=== PATIENT | male | born 1985 | race Two or more races ===

== ENCOUNTER 2018-10-25 15:22 | Emergency (ER) | payer SELFPAY ==
--- NOTE | 2018-10-25 15:41 | ER Document Report ---
ED Medical Screen (RME) - General Chief Complaint: Abdominal Pain Stated Complaint: ABDOMINAL PAIN Time Seen by Provider: 10/25/18 15:37 Primary Care Provider: TARI LUNSFORD [Primary Care Provider] - Follow up as needed Mode of Arrival: Ambulatory Information source: Patient Notes: 33-year-old male presents to ED for complaint of bilateral lower abdominal pain for about a week. He denies any nausea vomiting or diarrhea. Abdomen is soft but is tender in the pelvic area bowel sounds are active. He states it feels sore all the time. Patient is alert oriented respirations regular and unlabored speaking in full sentences walks with a even steady gait. He denies any past medical or surgical history. He states he does smoke a vapor cigarette but does not drink or do any drugs. Patient states whenever he is in the emergency room around the doctor's office his pulse and blood pressure do get higher. While I was talking to him I had him turn away from the vital sign machine and his pulse went down to 114 before he turned back around again and then his pulse shot back up to 125. I have greeted and performed a rapid initial assessment of this patient. A comprehensive ED assessment and evaluation of the patient, analysis of test results and completion of medical decision making process will be conducted by an additional ED providers. TRAVEL OUTSIDE OF THE [place] IN LAST 30 DAYS: No - Related Data Allergies/Adverse Reactions: No Known Allergies Allergy (Unverified 10/25/18 15:23) Past Medical History - Social History Chew tobacco use (# tins/day): No Frequency of alcohol use: None Drug Abuse: None Renal/ Medical History: Denies: Hx Peritoneal Dialysis Physical Exam - Vital signs Vitals: Temp Pulse Resp BP Pulse Ox 98.3 F 123 H 20 161/104 H 98 10/25/18 15:27 10/25/18 15:27 10/25/18 15:27 10/25/18 15:27 10/25/18 15:27 Course - Vital Signs Vital signs: Temp Pulse Resp BP Pulse Ox 98.3 F 123 H 20 161/104 H 98 10/25/18 15:27 10/25/18 15:27 10/25/18 15:27 10/25/18 15:27 10/25/18 15:27 Doctor's Discharge - Discharge Referrals: TARI LUNSFORD [Primary Care Provider] - Follow up as needed
[2018-10-25] MEDS ORDERED: RINGERS SOLUTION,LACTATED 1,000 ML IV ONE (16:25)
[2018-10-25 17:14] LABS: ABSOLUTE EOSINOPHILS # (AUTO) 0.2 10^3/uL (0.0-0.6); ABSOLUTE LYMPHOCYTES (AUTO) 2.3 10^3/uL (0.5-4.7); ABSOLUTE MONOCYTES (AUTO) 0.5 10^3/uL (0.1-1.4); ABSOLUTE NEUT (AUTO) 4.4 10^3/uL (1.7-8.2); BASOPHILS % (AUTO) 0.3 % (0-2); EOSINOPHILS % (AUTO) 2.1 % (0-6); HEMATOCRIT 42.7 % (37.9-51.0); HEMOGLOBIN 15.2 g/dL (13.5-17.0); LYMPHOCYTES % (AUTO) 31.5 % (13-45); MEAN CORPUSCULAR HEMOGLOBIN 29.9 pg (27.0-33.4); MEAN CORPUSCULAR HGB CONC 35.6 g/dL (32.0-36.0); MEAN CORPUSCULAR VOLUME 84 fl (80-97); MONOCYTES % (AUTO) 6.4 % (3-13); PLATELET COUNT 242 10^3/uL (150-450); RED BLOOD COUNT 5.09 10^6/uL (4.35-5.55); RED CELL DISTRIBUTION WIDTH 12.6 % (11.5-14.0); SEGMENTED NEUTROPHILS % (AUTO) 59.7 % (42-78); TOTAL CELLS COUNTED % (AUTO) 100 %; WHITE BLOOD COUNT 7.4 10^3/uL (4.0-10.5)
[2018-10-25 17:21] LABS: APPEARANCE,URINE CLEAR; BILIRUBIN,URINE NEGATIVE (NEGATIVE); COLOR,URINE YELLOW; GLUCOSE, URINE NEGATIVE (NEGATIVE); KETONES,URINE NEGATIVE (NEGATIVE); LEUKOCYTE ESTERASE,URINE NEGATIVE (NEGATIVE); NITRITE,URINE NEGATIVE (NEGATIVE); PROTEIN,URINE NEGATIVE (NEGATIVE); URINE SPECIFIC GRAVITY 1.012; UROBILINOGEN,URINE NEGATIVE mg/dL (<2.0)
[2018-10-25 17:33] LABS: ALANINE AMINOTRANSFERASE 80 U/L (21-72); ALBUMIN 4.4 g/dL (3.5-5.0); ALKALINE PHOSPHATASE 65 U/L (38-126); ANION GAP 9 (5-19); ASPARTATE AMINO TRANSFERASE 36 U/L (17-59); BILIRUBIN,DIRECT 0.3 mg/dL (0.0-0.4); BILIRUBIN,TOTAL 0.5 mg/dL (0.2-1.3); BLOOD UREA NITROGEN 12 mg/dL (7-20); CALCIUM 9.6 mg/dL (8.4-10.2); CARBON DIOXIDE 28 mmol/L (22-30); CHLORIDE 104 mmol/L (98-107); GLUCOSE 92 mg/dL (75-110); POTASSIUM 4.4 mmol/L (3.6-5.0); SODIUM 141.2 mmol/L (137-145); TOTAL PROTEIN 7.8 g/dL (6.3-8.2)
--- NOTE | 2018-10-25 18:24 | ER Document Report ---
ED General - General Chief Complaint: Abdominal Pain Stated Complaint: ABDOMINAL PAIN Time Seen by Provider: 10/25/18 15:37 Primary Care Provider: TARI LUNSFORD [NO LOCAL MD] - Follow up as needed Mode of Arrival: Ambulatory TRAVEL OUTSIDE OF THE [place] IN LAST 30 DAYS: No - HPI Patient complains to provider of: Abdominal pain Notes: Patient coming in for evaluation of abdominal pain. Patient says lower abdominal pain right lower quadrant left lower quadrant for approximately 1 week. Patient states no nausea no diarrhea no abdominal trauma. Patient states possibly constipation. Patient was noted to be in triage area approximately 130. Patient states possibly slightly anxious and also possibly slight dehydration. Patient otherwise resting company upon my evaluation playing on his phone. Denies any sick contacts Patient was seen in triage notes provided below 33-year-old male presents to ED for complaint of bilateral lower abdominal pain for about a week. He denies any nausea vomiting or diarrhea. Abdomen is soft but is tender in the pelvic area bowel sounds are active. He states it feels sore all the time. Patient is alert oriented respirations regular and unlabored speaking in full sentences walks with a even steady gait. He denies any past medical or surgical history. He states he does smoke a vapor cigarette but does not drink or do any drugs. Patient states whenever he is in the emergency room around the doctor's office his pulse and blood pressure do get higher. While I was talking to him I had him turn away from the vital sign machine and his pulse went down to 114 before he turned back around again and then his pulse shot back up to 125. - Related Data Allergies/Adverse Reactions: No Known Allergies Allergy (Unverified 10/25/18 15:23) Past Medical History - General Information source: Patient - Social History Smoking Status: Current Every Day Smoker Chew tobacco use (# tins/day): No Frequency of alcohol use: None Drug Abuse: None Family History: Reviewed & Not Pertinent Patient has suicidal ideation: No Patient has homicidal ideation: No Renal/ Medical History: Denies: Hx Peritoneal Dialysis Review of Systems - Review of Systems Constitutional: No symptoms reported EENT: No symptoms reported Cardiovascular: No symptoms reported Respiratory: No symptoms reported Gastrointestinal: Abdominal pain Genitourinary: No symptoms reported Male Genitourinary: No symptoms reported Musculoskeletal: No symptoms reported Skin: No symptoms reported Hematologic/Lymphatic: No symptoms reported Neurological/Psychological: No symptoms reported -: Yes All other systems reviewed and negative Physical Exam - Vital signs Vitals: Temp Pulse Resp BP Pulse Ox 98.3 F 123 H 20 161/104 H 98 10/25/18 15:27 10/25/18 15:27 10/25/18 15:27 10/25/18 15:27 10/25/18 15:27 Interpretation: Normal - General General appearance: Appears well, Alert - HEENT Head: Normocephalic, Atraumatic Eyes: Normal Pupils: PERRL - Respiratory Respiratory status: No respiratory distress Chest status: Nontender Breath sounds: Normal Chest palpation: Normal - Cardiovascular Rhythm: Regular Heart sounds: Normal auscultation Murmur: No - Abdominal Inspection: Normal Distension: No distension Bowel sounds: Normal Tenderness: Tender - Minimal tenderness in lower quadrants no guarding or rebound no surgical pathology seen. No: McBurney's point, Bowden's sign, Guarding, Rebound Organomegaly: No organomegaly - Back Back: Normal, Nontender - Extremities General upper extremity: Normal inspection, Nontender, Normal color, Normal ROM, Normal temperature General lower extremity: Normal inspection, Nontender, Normal color, Normal ROM, Normal temperature, Normal weight bearing. No: Yousuf's sign - Neurological Neuro grossly intact: Yes Cognition: Normal Orientation: AAOx4 [place] Coma Scale Eye Opening: Spontaneous Monica Coma Scale Verbal: Oriented Monica Coma Scale Motor: Obeys Commands [place] Coma Scale Total: 15 Speech: Normal Motor strength normal: LUE, RUE, LLE, RLE Sensory: Normal - Psychological Associated symptoms: Normal affect, Normal mood - Skin Skin Temperature: Warm Skin Moisture: Dry Skin Color: Normal Course - Re-evaluation Re-evalutation: 10/25/18 18:22 The patient presents with abdominal pain without signs of peritonitis or other life-threatening or serious etiology. The patient appears stable for discharge and has been instructed to return immediately if the symptoms worsen in any way, or in 8-12hr if not improved for re-evaluation. The patient has been instructed to return if the symptoms worsen or change in any way. - Vital Signs Vital signs: Temp Pulse Resp BP Pulse Ox 98.3 F 123 H 20 161/104 H 98 10/25/18 15:27 10/25/18 15:27 10/25/18 15:27 10/25/18 15:27 10/25/18 15:27 - Laboratory Result Diagrams: 10/25/18 15:53 10/25/18 15:53 Laboratory results interpreted by me: 10/25/18 15:53 ALT 80 H Discharge - Discharge Clinical Impression: Abdominal pain Qualifiers: Abdominal location: lower abdomen, unspecified Qualified Code(s): R10.30 - Lower abdominal pain, unspecified Condition: Good Disposition: HOME, SELF-CARE Instructions: Abdominal Pain ([facility]) Additional Instructions: At this time the laboratory studies not show any critical pathology. Your heart rate has improved to hydration more likely you are dehydrated. I recommend Bentyl for abdominal pain along with Tylenol Motrin. You may take the Zofran as prescribed for any nausea. Also did recommend taking Colace to make sure that you are having healthy bowel movements. Please eat a bland diet avoiding fatty greasy food for the next 48 hours. Return to the ER if you develop a fever. Prescriptions: Dicyclomine HCl [Bentyl 20 mg Tablet] 20 mg PO QID #30 tablet Docusate Sodium [Colace] 100 mg PO DAILY #20 capsule Ondansetron HCl [Zofran 4 mg Tablet] 1 - 2 tab PO Q6 #30 tablet Forms: Return to Work Referrals: LOCALMD,NO [NO LOCAL MD] - Follow up as needed
[2018-10-25 20:28] VITALS: BP 139/84
== END 2018-10-25 20:36 | disposition home or self-care (01) ==
LOC: ER 15:22
DX: R10.31 Right lower quadrant pain (principal); R10.12 Left upper quadrant pain; F17.290 Nicotine dependence, other tobacco product, uncomplicated
CPT/HCPCS: 99284; 96360; 36415; 85025; 80053; 81001; J7120

== ENCOUNTER 2019-07-28 12:56 | Inpatient (IN) | payer OTHER ==
[2019-07-28] MEDS ORDERED: ONDANSETRON HCL INJ/PF 4 MG/2 ML SDV IV ONE (13:35)
[2019-07-28] MEDS ORDERED: MORPHINE SULFATE 10 MG/ML INJ IV ONE ×2 (13:35→18:22)
[2019-07-28] MEDS ORDERED: NORMAL SALINE 1000 ML 1,000 ML IV ONE ×2 (13:35→22:00)
--- NOTE | 2019-07-28 13:37 | ER Document Report ---
ED Medical Screen (RME) - General Chief Complaint: Abdominal Pain Stated Complaint: ABDOMINAL PAIN/FEVER Time Seen by Provider: 07/28/19 13:33 TRAVEL OUTSIDE OF THE [place] IN LAST 30 DAYS: No - HPI Notes: 07/28/19 13:36 Patient is a 34-year-old male with no significant past medical history who presents complaint of low-grade fever and right lower quadrant abdominal pain that is been present for the past 2 days and does not radiate. Patient describes the pain as a sharp pain. He did have nausea and vomiting, but has not vomited since yesterday. He is still urinating normally and having normal bowel movements. I have treated and performed a rapid initial assessment of this patient. A comprehensive ED assessment and evaluation of the patient, analysis of test results and completion of medical decision making process will be conducted by additional ED providers. PHYSICAL EXAMINATION: GENERAL: Well-appearing, well-nourished and in no acute distress. A&Ox4. Answers questions appropriately. Abdomen: Limited exam in triage, but there is significant tenderness of the right lower quadrant. No CVA tenderness. - Related Data Allergies/Adverse Reactions: No Known Allergies Allergy (Unverified 10/25/18 15:23) Past Medical History Renal/ Medical History: Denies: Hx Peritoneal Dialysis Physical Exam - Vital signs Vitals: Temp Pulse Resp BP Pulse Ox 98.7 F 110 H 18 137/82 H 94 07/28/19 13:15 07/28/19 13:15 07/28/19 13:15 07/28/19 13:15 07/28/19 13:15 Course - Vital Signs Vital signs: Temp Pulse Resp BP Pulse Ox 98.7 F 110 H 18 137/82 H 94 07/28/19 13:15 07/28/19 13:15 07/28/19 13:15 07/28/19 13:15 07/28/19 13:15
[2019-07-28 14:11] LABS: ABSOLUTE LYMPHOCYTES (AUTO) 1.1 10^3/uL (0.5-4.7); ABSOLUTE MONOCYTES (AUTO) 1.1 10^3/uL (0.1-1.4); ABSOLUTE NEUT (AUTO) 13.3 10^3/uL (1.7-8.2); BASOPHILS % (AUTO) 0.2 % (0-2); EOSINOPHILS % (AUTO) 0.1 % (0-6); HEMATOCRIT 46.9 % (37.9-51.0); HEMOGLOBIN 16.4 g/dL (13.5-17.0); LYMPHOCYTES % (AUTO) 7.3 % (13-45); MEAN CORPUSCULAR HEMOGLOBIN 29.9 pg (27.0-33.4); MEAN CORPUSCULAR HGB CONC 34.9 g/dL (32.0-36.0); MEAN CORPUSCULAR VOLUME 86 fl (80-97); MONOCYTES % (AUTO) 6.9 % (3-13); PLATELET COUNT 214 10^3/uL (150-450); RED BLOOD COUNT 5.47 10^6/uL (4.35-5.55); RED CELL DISTRIBUTION WIDTH 13.1 % (11.5-14.0); SEGMENTED NEUTROPHILS % (AUTO) 85.5 % (42-78); TOTAL CELLS COUNTED % (AUTO) 100 %; WHITE BLOOD COUNT 15.5 10^3/uL (4.0-10.5)
[2019-07-28 14:21] LABS: APPEARANCE,URINE CLEAR; BILIRUBIN,URINE NEGATIVE (NEGATIVE); COLOR,URINE AMBER; GLUCOSE, URINE NEGATIVE (NEGATIVE); KETONES,URINE 80 mg/dL (NEGATIVE); PROTEIN,URINE 30 mg/dL (NEGATIVE); URINE SPECIFIC GRAVITY 1.024
[2019-07-28 14:48] LABS: ALBUMIN 4.6 g/dL (3.5-5.0); ALKALINE PHOSPHATASE 77 U/L (38-126); ANION GAP 11 (5-19); ASPARTATE AMINO TRANSFERASE 26 U/L (17-59); BILIRUBIN,DIRECT 0.4 mg/dL (0.0-0.4); BILIRUBIN,TOTAL 1.8 mg/dL (0.2-1.3); BLOOD UREA NITROGEN 11 mg/dL (7-20); CALCIUM 9.7 mg/dL (8.4-10.2); CARBON DIOXIDE 28 mmol/L (22-30); CHLORIDE 96 mmol/L (98-107); GLUCOSE 108 mg/dL (75-110); POTASSIUM 4.6 mmol/L (3.6-5.0); TOTAL PROTEIN 7.9 g/dL (6.3-8.2)
--- NOTE | 2019-07-28 15:13 | ER Document Report ---
ED GI/ - General Chief Complaint: Abdominal Pain Stated Complaint: ABDOMINAL PAIN/FEVER Time Seen by Provider: 07/28/19 13:33 Notes: CHIEF COMPLAINT: Right lower quadrant pain for 2 days HPI: 34-year-old male presenting to the emergency department complaining of severe right lower quadrant pain for 2 days denies penile or testicular pain. Denies dysuria. Denies fever. Has had nausea. Patient states 2 days ago he had gone out to eat and woke up in the middle of the night throwing up with right lower quadrant pain. The pain is been persistent and progressively worsening. Denies prior abdominal surgical history. Pain is worse with walking or movement ROS: See HPI - all other systems were reviewed and are otherwise negative Constitutional: no fever Eyes: no drainage, no blurred vision ENT: no runny nose, no sore throat Cardiovascular: no chest pain Resp: no SOB, no cough GI: + vomiting, no diarrhea, + abdominal pain : no dysuria Integumentary: no rash Allergy: no hives Musculoskeletal: no extremity pain or swelling Neurological: no numbness/tingling, no weakness MEDICATIONS: I agree with the patient medications as charted by the RN. ALLERGIES: I agree with the allergies as charted by the RN. PAST MEDICAL HISTORY/PAST SURGICAL HISTORY: Reviewed and agree as charted by RN. SOCIAL HISTORY: Reviewed and agree as charted by RN. FAMILY HISTORY: No significant familial comorbid conditions directly related to patient complaint EXAM: Reviewed vital signs as charted by RN. CONSTITUTIONAL: Alert and oriented and responds appropriately to questions. Uncomfortable -appearing; well-nourished HEAD: Normocephalic; atraumatic EYES: PERRL; Conjunctivae clear, sclerae non-icteric ENT: normal nose; no rhinorrhea; moist mucous membranes; pharynx without lesions noted, no uvula edema or deviation, no tonsillar hypertrophy, phonation normal NECK: Supple without meningismus; non-tender; no cervical lymphadenopathy, no masses CARD: RRR; no murmurs, no clicks, no rubs, no gallops; symmetric distal pulses RESP: Normal chest excursion without splinting or tachypnea; breath sounds clear and equal bilaterally; no wheezes, no rhonchi, no rales, pulse oximetry 98% on room air not hypoxic ABD/GI: Normal bowel sounds; non-distended; soft, moderate tenderness with guarding in the right lower quadrant on palpation; no palpable organomegaly or masses. BACK: The back appears normal and is non-tender to palpation, there is no CVA tenderness EXT: Normal ROM in all joints; non-tender to palpation; no cyanosis, no eff usions, no edema SKIN: Normal color for age and race; warm; dry; good turgor; no acute lesions no danyel NEURO: Moves all extremities equally; Motor and sensory function intact PSYCH: The patient's mood and manner are appropriate. Grooming and personal hygiene are appropriate. MDM: 34-year-old male with 2 days of a constant right lower quadrant pain denies penile or testicular pain. Initially had some vomiting now only with nausea. Patient has a mild leukocytosis. Suspect appendicitis. Will obtain CT imaging TRAVEL OUTSIDE OF THE [place] IN LAST 30 DAYS: No - Related Data Allergies/Adverse Reactions: No Known Allergies Allergy (Unverified 10/25/18 15:23) Past Medical History - Social History Smoking Status: Current Every Day Smoker Family History: Reviewed & Not Pertinent Patient has suicidal ideation: No Patient has homicidal ideation: No Renal/ Medical History: Denies: Hx Peritoneal Dialysis Physical Exam - Vital signs Vitals: Temp Pulse Resp BP Pulse Ox 98.7 F 110 H 18 137/82 H 94 07/28/19 13:15 07/28/19 13:15 07/28/19 13:15 07/28/19 13:15 07/28/19 13:15 Course - Re-evaluation Re-evalutation: 07/28/19 19:03 Called by the radiologist, patient with a positive appendicitis without perforation or abscess on CT. Discussed with the patient. I discussed with Dr. Anthony the surgeon, he will admit and see the patient - Vital Signs Vital signs: Temp Pulse Resp BP Pulse Ox 98.0 F 102 H 18 152/81 H 97 07/28/19 17:07 07/28/19 17:07 07/28/19 17:07 07/28/19 17:07 07/28/19 17:07 - Laboratory Result Diagrams: 07/28/19 13:52 07/28/19 13:52 Laboratory results interpreted by me: 07/28/19 07/28/19 07/28/19 13:52 13:52 13:52 WBC 15.5 H Lymph % (Auto) 7.3 L Absolute Neuts (auto) 13.3 H Seg Neutrophils % 85.5 H Sodium 134.8 L Chloride 96 L Total Bilirubin 1.8 H Urine Protein 30 H Urine Ketones 80 H Urine Blood SMALL H Urine Urobilinogen 4.0 H Discharge - Discharge Clinical Impression: Acute appendicitis Qualifiers: Acute appendicitis type: with localized peritonitis Appendicitis gangrene presence: without gangrene Appendicitis perforation presence: without perforation Appendicitis abscess presence: without abscess Qualified Code(s): K35.30 - Acute appendicitis with localized peritonitis, without perforation or gangrene Condition: Stable Disposition: ADMITTED INPATIENT Admitting Provider: Surgicalist - Dr. Anthony Unit Admitted: Surgical Floor
[2019-07-28] MEDS ORDERED: PIPERACILLIN/TAZOBACTAM 3.375 GM VIAL IV ONE (18:20)
--- NOTE | 2019-07-28 19:00 | RADIOLOGY REPORT (SQ) ---
EXAM DESCRIPTION: CT ABD/PELVIS WITH IV ORAL COMPLETED DATE/TIME: 07/28/2019 5:14 pm REASON FOR STUDY: appendicitis. Right lower quadrant pain. COMPARISON: None. TECHNIQUE: CT scan of the abdomen and pelvis performed using helical scanning technique with dynamic intravenous contrast injection. No oral contrast. Images reviewed with lung, soft tissue, and bone windows. Reconstructed coronal and sagittal MPR images reviewed. Delayed images for evaluation of the urinary system also acquired. All images stored on PACS. All CT scanners at this facility use dose modulation, iterative reconstruction, and/or weight based d osing when appropriate to reduce radiation dose to as low as reasonably achievable (ALARA). [facility]: Dose Right [facility]: CareDose [facility]: Dose Right [facility]: Teradose 4D [facility]: [employer] CONTRAST TYPE AND DOSE: contrast/concentration: Isovue 350.00 mg/ml; Total Contrast Delivered: 100.0 ml; Total Saline Delivered: 72.0 ml RENAL FUNCTION: GFR > 60. RADIATION DOSE: CT Rad equipment meets quality standard of care and radiation dose reduction techniq ues were employed. CTDIvol: 16.4 - 19.7 mGy. DLP: 2174 mGy-cm.. LIMITATIONS: None. FINDINGS: LOWER CHEST: No significant findings. No nodules or infiltrates. LIVER: The liver has normal size and contour. There is moderate diffuse hepatic steatosis. Subcapsu lar cyst at the anterior left hepatic lobe. No focal hepatic mass. Hepatic and portal veins are pat ent. SPLEEN: Normal size. No focal lesions. PANCREAS: No masses. No significant calcifications. No adjacent inflammation or peripancreatic fluid collections. Pancreatic duct not dilated. GALLBLADDER: No identified stones by CT criteria. No inflammatory changes to suggest cholecystitis. ADRENAL GLANDS: No significant masses or asymmetry. RIGHT KIDNEY AND URETER: No solid masses. No significant calcifications. No hydronephrosis or hyd roureter. LEFT KIDNEY AND URETER: No solid masses. No significant calcifications. No hydronephrosis or hydr oureter. AORTA AND VESSELS: No aneurysm. No dissection. Renal arteries, SMA, celiac without stenosis. RETROPERITONEUM: No retroperitoneal adenopathy, hemorrhage or masses. BOWEL AND PERITONEAL CAVITY: No masses or inflammatory changes. There is a small amount of free flui d in the right lower quadrant surrounding the appendix and layering in the right pericolic gutter. N o focal abscess. No pneumoperitoneum. . APPENDIX: The appendix is enlarged with abnormal enhancement and surrounding inflammatory change anamaria uring up to 1.2 cm diameter. Fluid-filled lumen. PELVIS: No mass. No free fluid. Normal bladder. ABDOMINAL WALL: No masses. No hernias. BONES: No significant or acute findings. OTHER: No other significant finding. IMPRESSION: 1. Acute appendicitis. No perforation or peritoneal abscess. 2. Moderate hepatic steatosis. COMMENT: Findings discussed with Dr. Beal on 07/28/2019 1852 hours. TECHNICAL DOCUMENTATION: JOB ID: [id number] Quality ID # [id number]: Final reports with documentation of one or more dose reduction techniques (e.g., Au tomated exposure control, adjustment of the mA and/or kV according to patient size, use of iterative reconstruction technique) 2010 [employer]- All Rights Reserved Reading location - IP/workstation name: [email or web address]
--- NOTE | 2019-07-28 21:22 | PDOC H&P ---
History of Present Illness Admission Date/PCP: 07/28/19 19:09 [facility] Patient complains of: Right lower quadrant pain for 2 days History of Present Illness: AD RIDER is a 34 year old male healthy, with a 2-day history of right lower quadrant pain intense nausea. The patient presented to the emergency room with above symptoms, CT scan abdomen pelvis was done revealing an acute nonperforated appendicitis. His white blood cell count is elevated 15.5. Social History Smoking Status: Current Every Day Smoker - Advance Directive Resuscitation Status: Full Code Family History Family History: Reviewed & Not Pertinent Parental Family History Reviewed: No Children Family History Reviewed: No Sibling(s) Family History Reviewed.: No Medication/Allergy Home Medications: No Home Medications 07/28/19 Allergies/Adverse Reactions: No Known Allergies Allergy (Unverified 10/25/18 15:23) Physical Exam Vital Signs: Temp Pulse Resp BP Pulse Ox 98.0 F 102 H 18 152/81 H 97 07/28/19 17:07 07/28/19 17:07 07/28/19 17:07 07/28/19 17:07 07/28/19 17:07 Intake & Output 07/27/19 07/28/19 07/29/19 06:59 06:59 06:59 Intake Total 1000 Balance 1000 Weight 106.2 kg General appearance: PRESENT: no acute distress, obese, well-developed Head exam: PRESENT: atraumatic, normocephalic Eye exam: PRESENT: EOMI Mouth exam: PRESENT: dry mucosa, neck supple Neck exam: PRESENT: full ROM Respiratory exam: PRESENT: clear to auscultation gamaliel Cardiovascular exam: PRESENT: RRR GI/Abdominal exam: PRESENT: hypoactive bowel sounds, rebound - In the right lower quadrant, soft, tenderness - Right lower quadrant Rectal exam: PRESENT: deferred Extremities exam: PRESENT: full ROM Musculoskeletal exam: PRESENT: full ROM Neurological exam: PRESENT: alert, awake, oriented to person, CN II-XII grossly intact Psychiatric exam: PRESENT: appropriate affect Skin exam: PRESENT: warm Results Laboratory Results: 07/28/19 13:52 07/28/19 13:52 07/28/19 07/28/19 07/28/19 13:52 13:52 13:52 WBC 15.5 H RBC 5.47 Hgb 16.4 Hct 46.9 MCV 86 MCH 29.9 MCHC 34.9 RDW 13.1 Plt Count 214 Seg Neutrophils % 85.5 H Sodium 134.8 L Potassium 4.6 Chloride 96 L Carbon Dioxide 28 Anion Gap 11 BUN 11 Creatinine 0.91 Est GFR ( Amer) > 60 Glucose 108 Calcium 9.7 Total Bilirubin 1.8 H AST 26 Alkaline Phosphatase 77 Total Protein 7.9 Albumin 4.6 Lipase 31.3 Urine Color MIKE Urine Appearance CLEAR Urine pH 6.0 Ur Specific [place] 1.024 Urine Protein 30 H Urine Glucose (UA) NEGATIVE Urine Ketones 80 H Urine Blood SMALL H Urine RBC (Auto) 1 Impressions: Abdomen/Pelvis CT 07/28/19 00:00 IMPRESSION: 1. Acute appendicitis. No perforation or peritoneal abscess. 2. Moderate hepatic steatosis. Assessment & Plan - Diagnosis (1) Acute appendicitis Qualifiers: Acute appendicitis type: with localized peritonitis Appendicitis gangrene presence: without gangrene Appendicitis perforation presence: without perforation Appendicitis abscess presence: without abscess Qualified Code(s): K35.30 - Acute appendicitis with localized peritonitis, without perforation or gangrene - Plan Summary Plan Summary: Assessment: Right lower quadrant pain for [address] scan abdomen pelvis significant for acute nonperforated appendicitis Leukocytosis (15.5) Physical exam significant for right lower quadrant pain Plan: Laparoscopic appendectomy possible open tonight Procedure, risks, benefits, complications, alternatives, discussed with the patient, he understands all the above, his questions were answered to his satisfaction, and he decided to proceed N.p.o. IV fluids normal saline 1 L bolus then 150 mL/hour Zosyn 3.375 g IV piggyback x1
[2019-07-28] MEDS ORDERED: NORMAL SALINE 1000 ML 1,000 ML IV PRN (21:48)
[2019-07-28] MEDS ORDERED: PIPERACILLIN SODIUM/TAZOBACTAM 3.375 GM in NORMAL SALINE 100 ML IV ONE (23:00)
[2019-07-29] MEDS ORDERED: ACETAMINOPHEN 1,000 MG/100 ML RTUPB IV PRN (00:45)
[2019-07-29] MEDS ORDERED: BUPIVACAINE INJ/PF LIPOSOME/PF 266 MG/20 ML SDV ONE (01:32)
[2019-07-29] MEDS ORDERED: MIDAZOLAM 2 MG/2 ML INJ ONE (01:36)
[2019-07-29] MEDS ORDERED: HYDROMORPHONE HCL INJ/PF 2 MG/ML AMPULE ONE (01:36)
[2019-07-29] MEDS ORDERED: KETOROLAC TROMETHAMINE 60 MG/2 ML SDV ONE (01:36)
[2019-07-29] MEDS ORDERED: FENTANYL CITRATE INJ/PF 100 MCG/2 ML AMPUL ONE (01:36)
[2019-07-29] MEDS ORDERED: ONDANSETRON HCL INJ/PF 4 MG/2 ML SDV ONE (01:37)
[2019-07-29] MEDS ORDERED: PROPOFOL INJ 200 MG/20 ML VIAL IV ONE (01:37)
[2019-07-29] MEDS ORDERED: DEXAMETHASONE SOD PHOSPHATE INJ 4 MG/1 ML VIAL ONE (01:37)
[2019-07-29] MEDS ORDERED: ACETAMINOPHEN 1,000 MG/100 ML RTUPB IV ONE (01:51)
[2019-07-29] MEDS ORDERED: MORPHINE SULFATE 10 MG/ML INJ IV PRN (02:16)
[2019-07-29] MEDS ORDERED: PROMETHAZINE HCL INJ 25 MG/1 ML VIAL IV PRN ×2 (02:16)
[2019-07-29] MEDS ORDERED: DIPHENHYDRAMINE HCL 50 MG/ML VIAL IV PRN (02:16)
[2019-07-29] MEDS ORDERED: OXYCODONE-ACETAMINOPHEN 5-325 MG TABLET PO PRN ×3 (02:16→18:16)
[2019-07-29] MEDS ORDERED: ONDANSETRON HCL INJ/PF 4 MG/2 ML SDV IV PRN ×2 (02:16→03:43)
[2019-07-29] MEDS ORDERED: MEPERIDINE HCL/PF INJ 25 MG/1 ML DISP.SYRIN IV PRN (02:16)
[2019-07-29] MEDS ORDERED: FENTANYL CITRATE INJ/PF 100 MCG/2 ML AMPUL IV PRN ×3 (02:16)
--- NOTE | 2019-07-29 03:43 | Operative Report ---
Nonrecallable Operative Report DATE OF SURGERY: 07/29/19 PREOPERATIVE DIAGNOSIS: Acute appendicitis POSTOPERATIVE DIAGNOSIS: Acute hemorrhagic gangrenous ruptured appendicitis OPERATION: Laparoscopic appendectomy SURGEON: SHANON VALDEZ ANESTHESIA: Local - 20 mL of Exparel TISSUE REMOVED OR ALTERED: Appendix COMPLICATIONS: None ESTIMATED BLOOD LOSS: Less than 10 mL INTRAOPERATIVE FINDINGS: Acute, hemorrhagic, gangrenous, perforated appendicitis PROCEDURE: The procedure was done in the operating room. The patient was placed in a supine position, general anesthesia induced by endotracheal intubation, the abdomen was prepped and draped in usual fashion. An incision was made just a adarsh the umbilicus with a #15 blade, the skin was tented with towel clips and a 12 mm port with Optiview adapter and scope were inserted through the abdominal wall into the peritoneal cavity. After they CO2 pneumoperitoneum was obtained, under direct visualization a 5 mm report was inserted in the right lateral quadrant of the abdomen following skin incision. The scope was removed from the umbilical port and inserted into the right side port with a 12 mm port, while a 5 mm port was inserted in left lower quadrant of the abdomen following skin incision. The patient was placed in steep Trendelenburg position with the right side elevated. The appendix was then identified by tracing the anterior tenia of the cecum, the appendix was then found, elevated, and stretched. The mesentery of the appendix was divided with the LigaSure. The appendix was found to be acutely inflamed, hemorrhagic, gangrenous, and a ruptured. The cecum and right colon were from the retroperitoneum with LigaSure and bluntly so that the base of the appendix was stapled with an Endo FELECIA stapler, extracted from the peritoneal cavity with an Endobag through the umbilical port. The pneumoperitoneum was then re-established, the stapled line was examined and found to be intact. The right lower quadrant was then irrigated with normal saline until clear. A 15 mm [place] round Parminder drain was inserted through the umbilical port and extracted from the left lower quadrant abdominal port; it was placed in the right lower quadrant. The drain was then secured to the skin with a 2-0 nylon suture and connected to bulb suction. The umbilical fascial defect was closed with a [id number] 0 Vicryl suture, placed with a fascia closure device under direct visualization and left untied. All instruments were removed, the pneumoperitoneum was released, and all ports were removed. The umbilical fascial defect was closed with the previously placed [id number] 0 Vicryl suture, all skin incisions were closed with a 4-0 PDS running subcuticular suture, and covered with Dermabond. The patient tolerated the procedure well, was extubated, and transferred to the recovery room in satisfactory conditions.
[2019-07-29] MEDS ORDERED: PIPERACILLIN/TAZOBACTAM 3.375 GM VIAL IV PRN (03:55)
[2019-07-29] MEDS ORDERED: KETOROLAC TROMETHAMINE INJ/PF 30 MG/1 ML SDV IV ONE (04:00)
[2019-07-29] MEDS ORDERED: PIPERACILLIN SODIUM/TAZOBACTAM 3.375 GM in NORMAL SALINE 100 ML IV ONE (04:00)
[2019-07-29] MEDS ORDERED: FAMOTIDINE INJ/PF 20 MG/2 ML SDV IV ONE (04:00)
[2019-07-29] MEDS ORDERED: PIPERACILLIN/TAZOBACTAM 3.375 GM VIAL IV SCH (04:00)
[2019-07-29] MEDS ORDERED: PIPERACILLIN/TAZOBACTAM 3.375 GM VIAL IV ONE (05:23)
[2019-07-29] MEDS: NORMAL SALINE 1000 ML 1,000 ML IV PRN ×2 (05:29→16:16)
[2019-07-29] MEDS ORDERED: SUCCINYLCHOLINE CHLORIDE INJ 200 MG/10 ML VIAL ONE (10:15)
[2019-07-29] MEDS ORDERED: VECURONIUM BROMIDE INJ 10 MG VIAL IV ONE (10:15)
[2019-07-29] MEDS: DOCUSATE SODIUM 100 MG CAPSULE PO SCH ×2 (11:07→18:29)
[2019-07-29] MEDS: PIPERACILLIN SODIUM/TAZOBACTAM 3.375 GM in NORMAL SALINE 100 ML IV SCH ×2 (11:08→18:37)
--- NOTE | 2019-07-29 11:09 | PDOC PROGRESS REPORT ---
Subjective Progress Note for:: 07/29/19 Subjective:: No complaints Reason For Visit: ACUTE, HEMORRHAGIC, GANGREOUS, PERFORATED Patient feels better, pain managed. Physical Exam Vital Signs: Temp Pulse Resp BP Pulse Ox 97.7 F 80 17 109/64 99 07/29/19 06:45 07/29/19 06:45 07/29/19 06:45 07/29/19 06:45 07/29/19 06:45 Intake & Output 07/28/19 07/29/19 07/30/19 06:59 06:59 06:59 Intake Total 5000 Output Total 10 Balance 4990 Weight 106.6 kg General appearance: PRESENT: no acute distress GI/Abdominal exam: PRESENT: other - The abdomen is soft, appropriately tender. Dressings dry and intact. Drain serosanguineous output Results Laboratory Results: 07/28/19 13:52 07/28/19 13:52 07/28/19 07/28/19 07/28/19 13:52 13:52 13:52 WBC 15.5 H RBC 5.47 Hgb 16.4 Hct 46.9 MCV 86 MCH 29.9 MCHC 34.9 RDW 13.1 Plt Count 214 Seg Neutrophils % 85.5 H Sodium 134.8 L Potassium 4.6 Chloride 96 L Carbon Dioxide 28 Anion Gap 11 BUN 11 Creatinine 0.91 Est GFR ( Amer) > 60 Glucose 108 Calcium 9.7 Total Bilirubin 1.8 H AST 26 Alkaline Phosphatase 77 Total Protein 7.9 Albumin 4.6 Lipase 31.3 Urine Color MIKE Urine Appearance CLEAR Urine pH 6.0 Ur Specific [place] 1.024 Urine Protein 30 H Urine Glucose (UA) NEGATIVE Urine Ketones 80 H Urine Blood SMALL H Urine RBC (Auto) 1 Impressions: Abdomen/Pelvis CT 07/28/19 00:00 IMPRESSION: 1. Acute appendicitis. No perforation or peritoneal abscess. 2. Moderate hepatic steatosis. Assessment & Plan - Diagnosis (1) Acute appendicitis Qualifiers: Acute appendicitis type: with localized peritonitis Appendicitis gangrene presence: without gangrene Appendicitis perforation presence: without perforation Appendicitis abscess presence: without abscess Qualified Code(s): K35.30 - Acute appendicitis with localized peritonitis, without perforation or gangrene Is this a current diagnosis for this admission?: Yes Plan: Pression: Doing well early postoperative course following appendectomy for acute appendicitis. Recommendations: 1. We will start liquids 2. We will Hep-Lock IV 3. Start p.o. pain medication. 4. Anticipate drain removal next 24 to 48 hours and discharged home. (2) Acute appendicitis Qualifiers: Acute appendicitis type: other Qualified Code(s): K35.890 - Other acute appendicitis without perforation or gangrene; K35.89 - Other acute appendicitis Is this a current diagnosis for this admission?: Yes (3) Abdominal abscess Is this a current diagnosis for this admission?: No - Time Time Spent with patient: 15-24 minutes Level of Care: MEDICAL Medications reviewed and adjusted accordingly: Yes Anticipated discharge: Home - Inpatient Certification Based on my medical assessment, after consideration of the patient's comorbidities, presenting symptoms, or acuity I expect that the services needed warrant INPATIENT care.: Yes I certify that my determination is in accordance with my understanding of Medicare's requirements for reasonable and necessary INPATIENT services [42 CFR 412.3e].: Yes Medical Necessity: Need For IV Fluids - Plan Summary Plan Summary: The above
[2019-07-29] MEDS: KETOROLAC TROMETHAMINE INJ/PF 30 MG/1 ML SDV IV SCH ×2 (11:11→18:29)
[2019-07-29] MEDS: ENOXAPARIN SODIUM INJ 40 MG/0.4 ML DISP.SYRIN SUBCUT SCH (11:11)
[2019-07-29] MEDS: ACETAMINOPHEN 1,000 MG/100 ML RTUPB IV SCH ×2 (16:18→21:56)
[2019-07-29] MEDS ORDERED: OXYCODONE HCL IR 5 MG TABLET PO PRN ×2 (18:25→18:30)
[2019-07-29] MEDS: FAMOTIDINE INJ/PF 20 MG/2 ML SDV IV SCH (18:29)
[2019-07-30] MEDS: PIPERACILLIN SODIUM/TAZOBACTAM 3.375 GM in NORMAL SALINE 100 ML IV SCH ×4 (00:30→17:54)
[2019-07-30] MEDS: KETOROLAC TROMETHAMINE INJ/PF 30 MG/1 ML SDV IV SCH ×4 (01:53→17:56)
[2019-07-30] MEDS: ACETAMINOPHEN 1,000 MG/100 ML RTUPB IV SCH (02:00)
[2019-07-30] MEDS: FAMOTIDINE INJ/PF 20 MG/2 ML SDV IV SCH (05:39)
[2019-07-30 06:08] LABS: APPEARANCE,URINE CLEAR; BILIRUBIN,URINE NEGATIVE (NEGATIVE); COLOR,URINE YELLOW; GLUCOSE, URINE NEGATIVE (NEGATIVE); KETONES,URINE TRACE mg/dL (NEGATIVE); LEUKOCYTE ESTERASE,URINE NEGATIVE (NEGATIVE); NITRITE,URINE NEGATIVE (NEGATIVE); PROTEIN,URINE NEGATIVE (NEGATIVE); URINE SPECIFIC GRAVITY 1.017
[2019-07-30 07:41] LABS: ABSOLUTE LYMPHOCYTES (AUTO) 1.3 10^3/uL (0.5-4.7); ABSOLUTE MONOCYTES (AUTO) 0.7 10^3/uL (0.1-1.4); ABSOLUTE NEUT (AUTO) 5.7 10^3/uL (1.7-8.2); BASOPHILS % (AUTO) 0.2 % (0-2); EOSINOPHILS % (AUTO) 0.2 % (0-6); HEMATOCRIT 35.7 % (37.9-51.0); LYMPHOCYTES % (AUTO) 16.4 % (13-45); MEAN CORPUSCULAR HEMOGLOBIN 29.9 pg (27.0-33.4); MEAN CORPUSCULAR HGB CONC 34.4 g/dL (32.0-36.0); MEAN CORPUSCULAR VOLUME 87 fl (80-97); MONOCYTES % (AUTO) 9.2 % (3-13); PLATELET COUNT 191 10^3/uL (150-450); RED BLOOD COUNT 4.11 10^6/uL (4.35-5.55); RED CELL DISTRIBUTION WIDTH 13.1 % (11.5-14.0); TOTAL CELLS COUNTED % (AUTO) 100 %; WHITE BLOOD COUNT 7.8 10^3/uL (4.0-10.5)
[2019-07-30 07:43] LABS: ANION GAP 7 (5-19); BLOOD UREA NITROGEN 9 mg/dL (7-20); CALCIUM 8.2 mg/dL (8.4-10.2); CARBON DIOXIDE 26 mmol/L (22-30); CHLORIDE 105 mmol/L (98-107); GLUCOSE 88 mg/dL (75-110); POTASSIUM 3.9 mmol/L (3.6-5.0)
[2019-07-30 07:50] LABS: HEMOGLOBIN 12.3 g/dL (13.5-17.0)
[2019-07-30] MEDS ORDERED: ACETAMINOPHEN 325 MG TABLET PO SCH (08:45)
--- NOTE | 2019-07-30 08:52 | PDOC PROGRESS REPORT ---
Subjective Progress Note for:: 07/30/19 Subjective:: patient Feels a little better, still mild nausea, much appetite, flatus present Reason For Visit: ACUTE, HEMORRHAGIC, GANGREOUS, PERFORATED Physical Exam Vital Signs: Temp Pulse Resp BP Pulse Ox 98.0 F 84 17 103/58 L 100 07/29/19 19:00 07/29/19 19:00 07/29/19 19:00 07/29/19 19:00 07/29/19 19:00 Intake & Output 07/29/19 07/30/19 07/31/19 06:59 06:59 06:59 Intake Total 5000 4530 Output Total 10 670 Balance 4990 3860 Weight 106.6 kg 107 kg General appearance: PRESENT: mild distress, obese Respiratory exam: PRESENT: clear to auscultation gamaliel Cardiovascular exam: PRESENT: RRR GI/Abdominal exam: PRESENT: hypoactive bowel sounds, soft, tenderness - Tenderness present at the incision sites, other - All incisions are clean dry and intact Results Laboratory Results: 07/30/19 06:05 07/30/19 06:05 07/30/19 07/30/19 07/30/19 05:40 06:05 06:05 WBC 7.8 RBC 4.11 L Hgb 12.3 L D Hct 35.7 L MCV 87 MCH 29.9 MCHC 34.4 RDW 13.1 Plt Count 191 Seg Neutrophils % 74.0 Sodium 138.4 Potassium 3.9 Chloride 105 Carbon Dioxide 26 Anion Gap 7 BUN 9 Creatinine 0.84 Est GFR ( Amer) > 60 Glucose 88 Calcium 8.2 L Urine Color YELLOW Urine Appearance CLEAR Urine pH 6.0 Ur Specific [place] 1.017 Urine Protein NEGATIVE Urine Glucose (UA) NEGATIVE Urine Ketones TRACE H Urine Blood NEGATIVE Urine Nitrite NEGATIVE Ur Leukocyte Esterase NEGATIVE Urine WBC (Auto) 1 Urine RBC (Auto) 0 Impressions: Abdomen/Pelvis CT 07/28/19 00:00 IMPRESSION: 1. Acute appendicitis. No perforation or peritoneal abscess. 2. Moderate hepatic steatosis. Assessment & Plan - Diagnosis (1) Acute appendicitis Qualifiers: Acute appendicitis type: with localized peritonitis Appendicitis gangrene presence: without gangrene Appendicitis perforation presence: without perforation Appendicitis abscess presence: without abscess Qualified Code(s): K35.30 - Acute appendicitis with localized peritonitis, without p erforation or gangrene Is this a current diagnosis for this admission?: Yes (2) Purulent ruptured appendicitis Is this a current diagnosis for this admission?: Yes - Time Time Spent with patient: 15-24 minutes - Plan Summary Plan Summary: Assessment: Postoperative day #2 following laparoscopic appendectomy Purulent acute ruptured appendicitis Vital signs stable afebrile White blood cell count normal 7.5 Patient slightly nauseated, flatus present Elevated intra-abdominal drain output, serosanguineous, most likely leftover intraoperative irrigation fluid Abdomen overall benign Plan: Change Tylenol from IV to oral Change Pepcid to p.o. Continue IV fluids Continue clear liquid diet Continue IV antibiotics till the patient appears to be clinically improved pain Continue intra-abdominal drain, until output decreases to less than 30 mL a day
[2019-07-30] MEDS: ENOXAPARIN SODIUM INJ 40 MG/0.4 ML DISP.SYRIN SUBCUT SCH (11:45)
[2019-07-30] MEDS: DOCUSATE SODIUM 100 MG CAPSULE PO SCH ×2 (11:46→18:09)
[2019-07-30] MEDS ORDERED: ACETAMINOPHEN 325 MG TABLET PO PRN (17:11)
[2019-07-30] MEDS: FAMOTIDINE 20 MG TABLET PO SCH (21:56)
[2019-07-31] MEDS: KETOROLAC TROMETHAMINE INJ/PF 30 MG/1 ML SDV IV SCH ×3 (00:38→11:15)
[2019-07-31] MEDS: PIPERACILLIN SODIUM/TAZOBACTAM 3.375 GM in NORMAL SALINE 100 ML IV SCH ×3 (00:38→11:15)
[2019-07-31 05:15] LABS: ABSOLUTE EOSINOPHILS # (AUTO) 0.1 10^3/uL (0.0-0.6); ABSOLUTE LYMPHOCYTES (AUTO) 1.7 10^3/uL (0.5-4.7); ABSOLUTE MONOCYTES (AUTO) 0.6 10^3/uL (0.1-1.4); ABSOLUTE NEUT (AUTO) 4.3 10^3/uL (1.7-8.2); BASOPHILS % (AUTO) 0.4 % (0-2); EOSINOPHILS % (AUTO) 1.6 % (0-6); HEMATOCRIT 35.7 % (37.9-51.0); HEMOGLOBIN 12.2 g/dL (13.5-17.0); LYMPHOCYTES % (AUTO) 24.7 % (13-45); MEAN CORPUSCULAR HEMOGLOBIN 29.6 pg (27.0-33.4); MEAN CORPUSCULAR HGB CONC 34.1 g/dL (32.0-36.0); MEAN CORPUSCULAR VOLUME 87 fl (80-97); MONOCYTES % (AUTO) 9.2 % (3-13); PLATELET COUNT 218 10^3/uL (150-450); RED BLOOD COUNT 4.12 10^6/uL (4.35-5.55); RED CELL DISTRIBUTION WIDTH 12.8 % (11.5-14.0); SEGMENTED NEUTROPHILS % (AUTO) 64.1 % (42-78); TOTAL CELLS COUNTED % (AUTO) 100 %; WHITE BLOOD COUNT 6.7 10^3/uL (4.0-10.5)
[2019-07-31 05:33] LABS: ANION GAP 5 (5-19); BLOOD UREA NITROGEN 7 mg/dL (7-20); CALCIUM 8.1 mg/dL (8.4-10.2); CARBON DIOXIDE 26 mmol/L (22-30); CHLORIDE 109 mmol/L (98-107); GLUCOSE 78 mg/dL (75-110)
[2019-07-31] MEDS ORDERED: HYDROCODONE/ACETAMINOPHEN 10-325 MG TABLET PO PRN (08:35)
[2019-07-31] MEDS: DOCUSATE SODIUM 100 MG CAPSULE PO SCH (09:49)
[2019-07-31] MEDS: ENOXAPARIN SODIUM INJ 40 MG/0.4 ML DISP.SYRIN SUBCUT SCH (09:50)
[2019-07-31] MEDS: FAMOTIDINE 20 MG TABLET PO SCH (09:50)
--- NOTE | 2019-07-31 15:14 | PDOC DISCHARGE SUMMARY ---
General - Admit/Disc Date/PCP Admission Date/Primary Care Provider: 07/28/19 19:09 [place] [facility] Discharge Date: 07/31/19 - Discharge Diagnosis Final Diagnosis: Acute perforated appendicitis. - Assessment Summary: This is a 34-year-old male admitted to hospital with abdominal pain. He was found to have perforated acute appendicitis. The patient was taken to the operating room where appendectomy was performed. Patient was taken to the floor in stable condition. His fever subsided, and his leukocytosis resolved. By 07/31/2019, the patient was doing well, ambulating, tolerating a diet, and his pain was controlled with oral medications. At this time, it is felt that he is medically fit for discharge. - Additional Information Resuscitation Status: Full Code Discharge Diet: As Tolerated Discharge Activity: No Lifting Over 10 Pounds, No Lifting/Push/Pulling Referrals: [facility] [Provider Group] (S/P LAP APPY 07/29 DR. VALDEZ) Prescriptions: Amox Tr/Potassium Clavulanate [Augmentin 875-125 mg Tablet] 1 tab PO BID #14 tab let Metronidazole [Flagyl 500 mg Tablet] 500 mg PO TID #21 tablet Hydrocodone/Acetaminophen [[place] 10-325 mg Tablet] 1 tab PO Q4HP PRN #15 tablet PRN Reason: For Pain Home Medications: Amox Tr/Potassium Clavulanate [Augmentin 875-125 mg Tablet] 1 tab PO BID #14 tablet 07/31/19 Hydrocodone/Acetaminophen [[place] 10-325 mg Tablet] 1 tab PO Q4HP PRN #15 tablet 07/31/19 Metronidazole [Flagyl 500 mg Tablet] 500 mg PO TID #21 tablet 07/31/19 History of Present Illiness History of Present Illness: AD RIDER is a 34 year old male Physical Exam Vital Signs: Temp Pulse Resp BP Pulse Ox 97.9 F 82 19 137/87 H 100 07/31/19 11:17 07/31/19 11:17 07/31/19 11:17 07/31/19 11:17 07/31/19 11:17 Intake & Output 07/30/19 07/31/19 08/01/19 06:59 06:59 06:59 Intake Total 4530 1760 560 Output Total 670 Balance 3860 1760 560 Weight 107 kg 112.1 kg Results Laboratory Results: WBC 6.7 10^3/uL (4.0-10.5) 07/31/19 04:18 RBC 4.12 10^6/uL (4.35-5.55) L 07/31/19 04:18 Hgb 12.2 g/dL (13.5-17.0) L 07/31/19 04:18 Hct 35.7 % (37.9-51.0) L 07/31/19 04:18 MCV 87 fl (80-97) 07/31/19 04:18 MCH 29.6 pg (27.0-33.4) 07/31/19 04:18 MCHC 34.1 g/dL (32.0-36.0) 07/31/19 04:18 RDW 12.8 % (11.5-14.0) 07/31/19 04:18 Plt Count 218 10^3/uL (150-450) 07/31/19 04:18 Lymph % (Auto) 24.7 % (13-45) 07/31/19 04:18 [place] % (Auto) 9.2 % (3-13) 07/31/19 04:18 Eos % (Auto) 1.6 % (0-6) 07/31/19 04:18 Baso % (Auto) 0.4 % (0-2) 07/31/19 04:18 Absolute Neuts (auto) 4.3 10^3/uL (1.7-8.2) 07/31/19 04:18 Absolute Lymphs (auto) 1.7 10^3/uL (0.5-4.7) 07/31/19 04:18 Absolute Monos (auto) 0.6 10^3/uL (0.1-1.4) 07/31/19 04:18 Absolute Eos (auto) 0.1 10^3/uL (0.0-0.6) 07/31/19 04:18 Absolute Basos (auto) 0.0 10^3/uL (0.0-0.2) 07/31/19 04:18 Seg Neutrophils % 64.1 % (42-78) 07/31/19 04:18 Sodium 140.0 mmol/L (137-145) 07/31/19 04:18 Potassium 4.0 mmol/L (3.6-5.0) 07/31/19 04:18 Chloride 109 mmol/L (98-107) H 07/31/19 04:18 Carbon Dioxide 26 mmol/L (22-30) 07/31/19 04:18 Anion Gap 5 (5-19) 07/31/19 04:18 BUN 7 mg/dL (7-20) 07/31/19 04:18 Creatinine 0.81 mg/dL (0.52-1.25) 07/31/19 04:18 Est GFR ( Amer) > 60 (>60) 07/31/19 04:18 Est GFR (MDRD) Non-Af > 60 (>60) 07/31/19 04:18 Glucose 78 mg/dL (75-110) 07/31/19 04:18 Calcium 8.1 mg/dL (8.4-10.2) L 07/31/19 04:18 Total Bilirubin 1.8 mg/dL (0.2-1.3) H 07/28/19 13:52 Direct Bilirubin 0.4 mg/dL (0.0-0.4) 07/28/19 13:52 Neonat Total Bilirubin Not Reportable 07/28/19 13:52 Neonat Direct Bilirubin Not Reportable 07/28/19 13:52 Neonat Indirect Bili Not Reportable 07/28/19 13:52 AST 26 U/L (17-59) 07/28/19 13:52 ALT 64 U/L (<50) 07/28/19 13:52 Alkaline Phosphatase 77 U/L (38-126) 07/28/19 13:52 Total Protein 7.9 g/dL (6.3-8.2) 07/28/19 13:52 Albumin 4.6 g/dL (3.5-5.0) 07/28/19 13:52 Lipase 31.3 U/L (23-300) 07/28/19 13:52 Urine Color YELLOW 07/30/19 05:40 Urine Appearance CLEAR 07/30/19 05:40 Urine pH 6.0 (5.0-9.0) 07/30/19 05:40 Ur Specific [place] 1.017 07/30/19 05:40 Urine Protein NEGATIVE mg/dL (NEGATIVE) 07/30/19 05:40 Urine Glucose (UA) NEGATIVE mg/dL (NEGATIVE) 07/30/19 05:40 Urine Ketones TRACE mg/dL (NEGATIVE) H 07/30/19 05:40 Urine Blood NEGATIVE (NEGATIVE) 07/30/19 05:40 Urine Nitrite NEGATIVE (NEGATIVE) 07/30/19 05:40 Urine Nitrite (Reflex) NEGATIVE (NEGATIVE) 07/28/19 13:52 Urine Bilirubin NEGATIVE (NEGATIVE) 07/30/19 05:40 Urine Urobilinogen 2.0 mg/dL (<2.0) H 07/30/19 05:40 Ur Leukocyte Esterase NEGATIVE (NEGATIVE) 07/30/19 05:40 Leukocyte Esterase Rfl NEGATIVE (NEGATIVE) 07/28/19 13:52 Urine WBC (Auto) 1 /HPF 07/30/19 05:40 Urine RBC (Auto) 0 /HPF 07/30/19 05:40 Urine WBC (Reflex) 2 /HPF 07/28/19 13:52 Squamous Epi Cells Auto <1 /HPF 07/30/19 05:40 Urine Mucus (Auto) MANY /LPF 07/28/19 13:52 Urine Ascorbic Acid NEGATIVE (NEGATIVE) 07/30/19 05:40 Impressions: Abdomen/Pelvis CT 07/28/19 00:00 IMPRESSION: 1. Acute appendicitis. No perforation or peritoneal abscess. 2. Moderate hepatic steatosis.
[2019-07-31 15:28] VITALS: BP 131/70
== END 2019-07-31 16:15 | disposition home or self-care (01) | DRG 343 ==
LOC: ER 12:56 → EH 19:09 → 5 20:24
PROVIDERS: ADMIT Surgery; ATTEND Surgery
PROC: 0DTJ4ZZ Resection of Appendix, Percutaneous Endoscopic Approach (ICD-10-PCS; principal; 2019-07-29 02:00)
DX: K35.891 Other acute appendicitis without perforation, with gangrene (principal); F17.210 Nicotine dependence, cigarettes, uncomplicated
CPT/HCPCS: 36415; 74177; 80048; 80053; 81001; 83690; 840; 85025; 88304; 96361; 96374; 96375; 96376; 99285; C9290; J0131; J0330; J1100; J1170; J1650; J1885; J2250; J2270; J2405; J2543; J2704; J3010; J3490; J7030; J7050; S0028

== ENCOUNTER 2019-11-27 13:00 | Emergency (ER) | payer OTHER ==
--- NOTE | 2019-11-27 13:27 | ER Document Report ---
ED ENT - General Chief Complaint: Sore Throat Stated Complaint: SORE THROAT Time Seen by Provider: 11/27/19 13:08 Primary Care Provider: KEHSIA GAITAN [Primary Care Provider] - Follow up tomorrow (Call for an outpatient follow-up appointment due to your elevated blood pressure) Mode of Arrival: Ambulatory Information source: Patient Notes: 34-year-old male past medical history significant for hypertension not currently on any medications presents to the emergency room complaining of a sore throat with a fever of 101 started yesterday. Took Tylenol with some relief. No fever today. No ill contacts. States he is eating and drinking normally. No COVID- 19 exposure. 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 No recent antibiotics. TRAVEL OUTSIDE OF THE [place] IN LAST 30 DAYS: No - Related Data Allergies/Adverse Reactions: No Known Allergies Allergy (Unverified 10/25/18 15:23) Past Medical History - General Information source: Patient - Social History Smoking Status: Current Every Day Smoker Frequency of alcohol use: None Drug Abuse: None Family History: Reviewed & Not Pertinent Patient has homicidal ideation: No Renal/ Medical History: Denies: Hx Peritoneal Dialysis Psychiatric Medical History: Reports: Hx Depression Review of Systems - Review of Systems Constitutional: Fever EENT: Throat pain Cardiovascular: No symptoms reported Respiratory: No symptoms reported Musculoskeletal: No symptoms reported Skin: No symptoms reported. denies: Rash Neurological/Psychological: No symptoms reported -: Yes All other systems reviewed and negative Physical Exam - Vital signs Vitals: Temp Pulse Resp BP Pulse Ox 97.9 F 108 H 20 165/105 H 100 11/27/19 13:10 11/27/19 13:10 11/27/19 13:10 11/27/19 13:10 11/27/19 13:10 - General General appearance: Appears well, Alert In distress: Mild - HEENT Head: Normocephalic, Atraumatic Eyes: Normal Pupils: PERRL Pharynx: Erythema, Exudate, Other - Enlarged tonsils,. No: Peritonsillar abscess Neck: No: Posterior cervical chain, Brudzinski, Kernig's, Lymphadenopathy, Meningismus - Respiratory Respiratory status: No respiratory distress Chest status: Nontender Breath sounds: Normal Chest palpation: Normal - Cardiovascular Rhythm: Tachycardia Heart sounds: Normal auscultation Murmur: No - Neurological Neuro grossly intact: Yes Cognition: Normal Orientation: AAOx4 [place] Coma Scale Eye Opening: Spontaneous [place] Coma Scale Verbal: Oriented [place] Coma Scale Motor: Obeys Commands [place] Coma Scale Total: 15 Speech: Normal Motor strength normal: LUE, RUE, LLE, RLE Sensory: Normal - Skin Skin Temperature: Warm Skin Moisture: Dry Skin Color: Normal Course - Re-evaluation Re-evalutation: 11/27/19 15:00 Patient is afebrile, nontoxic-appearing, vital signs have improved. Reviewed negative strep results with patient. Counseled on supportive therapy. Counseled on need to follow-up outpatient with primary care physician for his elevated blood pressure. Was given strict return to the emergency room guidelines. He is to return for any new or worsening symptoms. All questions were answered. Patient verbalized understanding and agrees with plan of care. - Vital Signs Vital signs: Temp Pulse Resp BP Pulse Ox 98.0 F 79 18 132/82 H 98 11/27/19 15:35 11/27/19 15:35 11/27/19 15:35 11/27/19 15:35 11/27/19 15:35 Discharge - Discharge Clinical Impression: Sore throat Hypertension Qualifiers: Hypertension type: unspecified Qualified Code(s): I10 - Essential (primary) hypertension Condition: Stable Disposition: HOME, SELF-CARE Instructions: Sore Throat ([facility]) Additional Instructions: Tylenol as needed for pain. Encourage fluids. Follow-up with primary care physician if not improving in 2 to 3 days. Also for elevated blood pressure. Return for any new or worsening symptoms. Forms: Elevated Blood Pressure [facility]errals[facility] [Primary Care Provider] - Follow up tomorrow (Call for an outpatient follow-up appointment due to your elevated blood pressure)
[2019-11-27] MEDS ORDERED: ACETAMINOPHEN 325 MG TABLET PO ONE (13:28)
[2019-11-27] MEDS ORDERED: CLONIDINE HCL 0.1 MG TABLET PO ONE (13:28)
[2019-11-27 15:44] VITALS: BP 132/82
== END 2019-11-27 15:38 | disposition home or self-care (01) ==
LOC: ER 13:00
DX: J02.9 Acute pharyngitis, unspecified (principal); I10 Essential (primary) hypertension; R50.9 Fever, unspecified; Z79.899 Other long term (current) drug therapy; F17.200 Nicotine dependence, unspecified, uncomplicated
CPT/HCPCS: 87070; 87880; 99283